=== PATIENT | female | born 1955 | race Caucasian/White ===

== ENCOUNTER 2018-09-29 19:01 | Emergency (ER) | payer MEDICARE, MEDICAID ==
[~2018-09-29] VITALS: Ht 160 cm; Wt 136.4 kg
[~2018-09-29 19:01] MED LIST: ALLEGRA 60 MG T60 MG PO; ASCORBIC ACID500 MG PO; BACTRIM DS TABL1 TAB PO; CLARITIN 10 MG10 MG PO; COLACE100 MG PO; COUMADIN5 MG PO; MICRO-K10 MEQ PO; MIRALAX17 GM PO; MULTI-DAY VITAM1 TAB PO; NORCO 5/325 TAB1 TA1 PO; OXYBUTYNIN CHLOR5 MG PO; PEPCID AC20 MG PO; PERCOCET 10/3251 TA1 PO; PRINIVIL20 MG PO; RESTORIL15 MG PO; ROBAXIN-750750 MG PO; SENOKOT-S TABLE1 TAB OR; TENORMIN50 MG PO; VITAMIN D50000 UNIT PO; ZINC OXIDE 20 %30 GM TP; ZOLOFT50 MG PO
[2018-09-29 19:07] VITALS: Ht 160 cm; Wt 136.4 kg
[2018-09-29 23:18] VITALS: BP 145/81
== END 2018-09-29 23:19 ==
LOC: D.ER 19:01
DX: S09.93XA Unspecified injury of face, initial encounter (principal); Y93.89 Activity, other specified; Y92.019 Unspecified place in single-family (private) house as the place of occurrence of the external cause

== ENCOUNTER → 2020-05-09 16:58 | Outpatient (CLI) | payer MEDICARE, MEDICAID ==
[2018-09-29 19:07] VITALS: BMI 53.2
== END | disposition home or self-care (01) ==
LOC: D.LABREF 16:58
PROVIDERS: ATTEND Family Medicine
DX: E11.9 Type 2 diabetes mellitus without complications (principal)

== ENCOUNTER → 2020-07-01 21:36 | Outpatient (CLI) | payer MEDICARE, MEDICAID ==
[2018-09-29 19:07] VITALS: BMI 53.2
[2020-07-01 22:21] LABS: BASOPHILS 0.4 % (0-2); EOSINOPHILS 3.1 % (0-7); HEMATOCRIT 44.7 % (36.0-48.0); HEMOGLOBIN 13.6 g/dL (12-16); IMMATURE GRANULOCYTES 0.5 % (0-5); LYMPHOCYTE ABS# 2.28 10x3/uL (1.18-3.74); LYMPHOCYTES 20.9 % (15-50); MCH 25.6 pg (26.0-34.0); MCHC 30.4 g/dL (31.0-37.0); MEAN PLATELET VOLUME 11.5 fL (7.4-10.4); MONOCYTES 6.7 % (2-11); NEUTROPHIL ABS# 7.47 10x3/uL (1.56-6.13); NEUTROPHILS 68.4 % (40-80); PLATELET COUNT 222 10x3/uL (130-400); RBC 5.32 10x6/uL (4.00-5.40); RDW 17.3 % (11.5-14.5); WBC 10.9 10x3/uL (4.8-10.8)
[2020-07-01 22:30] LABS: CALC OSMOLALITY 278 mosm/kg (275-300); CALCIUM 8.2 mg/dL (8.5-10.1); CARBON DIOXIDE 26.7 mmol/L (21.0-32.0); CHLORIDE - SERUM 101 mmol/L (98-107); CREATININE - SERUM 0.8 mg/dL (0.6-1.3); GLUCOSE 88 mg/dL (74-106); POTASSIUM - SERUM 4.2 mmol/L (3.5-5.1); SODIUM 140 mmol/L (136-145); UREA NITROGEN 16 mg/dL (7-18); VALPROIC ACID (DEPAKOTE) 14.5 ug/mL (50.0-100.0); eGFR NON AFRICAN AMERICAN 76 mL/min (90-120)
== END | disposition home or self-care (01) ==
LOC: D.LABREF 21:36
PROVIDERS: ATTEND Family Medicine
DX: R41.0 Disorientation, unspecified (principal)

== ENCOUNTER → 2020-07-02 09:03 | Outpatient (CLI) | payer MEDICARE, MEDICAID ==
[2018-09-29 19:07] VITALS: BMI 53.2
[2020-07-02 10:23] LABS: BILIRUBIN NEGATIVE (NEGATIVE); KETONE NEGATIVE (NEGATIVE); NITRITE NEGATIVE (NEGATIVE); UROBILINOGEN NORMAL mg/dL (< 2)
[2020-07-02 10:25] LABS: BACTERIA MANY HPF (NONE SEEN); SQUAMOUS EPITHELIAL 0-5 HPF (0-4)
== END | disposition home or self-care (01) ==
LOC: D.LABREF 09:03
PROVIDERS: ATTEND Family Medicine
DX: R41.0 Disorientation, unspecified (principal)

== ENCOUNTER → 2020-08-07 15:45 | Outpatient (CLI) | payer MEDICARE, MEDICAID ==
[2018-09-29 19:07] VITALS: BMI 53.2
== END | disposition home or self-care (01) ==
LOC: D.LABREF 15:45
PROVIDERS: ATTEND Family Medicine
DX: E11.9 Type 2 diabetes mellitus without complications (principal)

== ENCOUNTER → 2020-09-10 18:43 | Outpatient (CLI) | payer MEDICARE, MEDICAID ==
[2018-09-29 19:07] VITALS: BMI 53.2
== END | disposition home or self-care (01) ==
LOC: D.LABREF 18:43
PROVIDERS: ATTEND Family Medicine
DX: Z51.81 Encounter for therapeutic drug level monitoring (principal)